=== PATIENT | male | born 1950 | race Caucasian/White ===

== ENCOUNTER 2019-01-10 20:27 | Emergency (ER) | payer MEDICARE, OTHER ==
[~2019-01-10] VITALS: Ht 180.3 cm; Wt 82.1 kg
[2019-01-10] MEDS ORDERED: CRESTOR40 MG PO (20:38)
[2019-01-10] MEDS ORDERED: ASPIRIN81 M2 PO (20:39)
[2019-01-10] MEDS ORDERED: RAMIPRIL10 MG PO (20:39)
[2019-01-10] MEDS ORDERED: KEFLEX500 M1 PO (21:19)
[2019-01-10 21:44] VITALS: BP 145/89
== END 2019-01-10 21:45 | disposition home or self-care (01) ==
LOC: M.ERS 20:27
DX: S61.012A Laceration without foreign body of left thumb without damage to nail, initial encounter (principal); I10 Essential (primary) hypertension; E78.00 Pure hypercholesterolemia, unspecified; E78.5 Hyperlipidemia, unspecified; Z79.899 Other long term (current) drug therapy; W26.8XXA Contact with other sharp object(s), not elsewhere classified, initial encounter; Y93.89 Activity, other specified; Y92.89 Other specified places as the place of occurrence of the external cause; Y99.8 Other external cause status